=== PATIENT | female | born 1995 | race Hispanic/Latino ===

== ENCOUNTER 2017-02-24 15:51 | Emergency (ER) | payer OTHER ==
[~2017-02-24] VITALS: Ht 157.5 cm; Wt 118.2 kg
[~2017-02-24 15:51] MED LIST: DOCU-41 PO; IBUP800T28 PO; OXYC1TAB24 PO
[2017-02-24 15:55] VITALS: BP 144/99; PULSE 105; RESP 20; O2SAT 99
--- NOTE | 2017-02-24 17:40 | ED.REPORT ---
HPI-Allergic Reaction Date of Service February 24, 2017 ED Provider: Arsh Cox MD Patient is a 21 year old female with a history of a pituitary gland disorder who presents to the ED due to an allergic reaction onset 1400. Associated symptoms include throat swelling, hives and episodes of confusion. She denies eating any new foods or taking any new medications. The patient was seen earlier today at , where she was given IV medications and improved. Patient reports she has been seen previously for these episodes of confusion that have been going on for the past year. Nursing Notes Stated Complaint: ALLERGIC REACTION/FROM [facility] Chief Complaint: Allergic Reaction Nursing Notes Reviewed: Yes Allergies: Coded Allergies: No Known Allergies (Verified Allergy, Unknown, 04/24/16) Scheduled PRN Docusate Sodium (Colace) 100 Mg Capsule 100 MG PO BID PRN PRN For Constipation Ibuprofen (Ibuprofen) 800 Mg Tablet 800 MG PO Q6H PRN PRN For Pain oxyCODONE-Acetaminophen 5-325 mg (oxyCODONE-Acetaminophen 5-325 mg) 1 Each Tablet 1-2 TAB PO Q6H PRN PRN For Pain General Time Seen by MD: 17:28 Chief Complaint Allergic reaction Past Medical History Past Medical History Denies Past Surgical History Reports: Family History Noncontributory Smoking History Never Smoker Ambulatory Status Independent Physical Exam Initial Vital Signs Vital Signs (First) Date Time Temp Pulse Resp B/P Pulse Ox O2 Delivery O2 Flow Rate FiO2 02/24/17 15:55 36.7 105 20 144/99 99 Room Air Initial VS: Reviewed General/Constitutional: Awake, Alert, No acute distress Respiratory / Chest: Atraumatic, Breath sounds NL, Breath sounds = bilat, No respiratory distress Cardiovascular: Heart rate NL, Regular rhythm, Heart sounds NL, No murmurs Skin: Atraumatic, Color NL, No rash, Warm, Dry Head / Eyes: Atraumatic, Normocephalic, PERRL, EOMI ENT: Atraumatic, Airway patent, Mucous membranes moist, Pharynx NL no tongue or throat swelling Abdomen: Atraumatic, Soft, Non-tender Neurologic: Oriented X3, Speech NL, No motor deficits, No sensory deficits Upper Extremity / MS: Atraumatic, Full range of motion Lower Extremity / Pelvis / MS: Atraumatic, Full range of motion, No edema Psychiatric: Affect NL, Mood NL Re-Eval/Medical Decision Med Decision/Clinical Course 21-year-old female presenting several from urgent care after allergic reaction. She reports she had hives earlier today and reports throat swelling. They gave her steroids and urgent care and sent her over. They did not give her epinephrine. Her symptoms resolved prior to arrival. She was observed for greater than 2 hours with no resolution of symptoms. Unclear etiology for her allergic reaction. No signs of anaphylaxis. Her throat swelling and has completely resolved prior to arrival. Recommend Benadryl as needed and return precautions. Source of Hx: Old records Re-Evaluation/Progress #1: Time of Eval: 19:36 Re-Evaluation/Progress Note: Patient reports that she is feeling better now. Re-Evaluation/Progress #2: Time of Eval: 19:46 Re-Evaluation/Progress Note: Discussed plan for discharge. The patient understands and agrees to the plan for discharge. All questions were addressed. Counseled Regarding: Diagnosis, Lab results, Need for follow-up, When/why to return to ED Discharge & Departure Primary Impression: Allergic reaction Encounter type: initial encounter Qualified Code: T78.40XA - Allergy, unspecified, initial encounter Disposition: Home Discharge Condition All VS Reviewed: Yes Condition: Stable Patient Instructions: Allergies (ED), Food Allergy (ED) Additional Instructions: We are unsure what caused your allergic reaction. You can buy over the counter allergy medication to help with the symptoms. Please follow up with your primary care physician next week. Return to the emergency department if you develop any new or worsening symptoms including difficulty breathing, swallowing or hives. Referrals: Hayley Huerta DO (PCP) Brandon Attestation Portions of this note were transcribed by Ivy Serna. I, Dr. Carine Esquivel personally performed the history, physical exam and medical decision-making; I reviewed and confirmed the accuracy of the information in the transcribed note. Signed by: Brandon Muller, 02/24/17 and 1945 copies to: Hayley Huerta Ben M MD February 24, 2017 17:40 Eugenia Serna February 24, 2017 18:49
[2017-02-24 18:36] VITALS: BP 146/78; PULSE 110; RESP 18; O2SAT 99
[2017-02-24 19:52] VITALS: BP 141/89; PULSE 101; RESP 16; O2SAT 95
== END 2017-02-24 19:57 | disposition home or self-care (01) ==
LOC: SED 15:51
DX: T78.40XA Allergy, unspecified, initial encounter (principal); Y93.89 Activity, other specified; Y92.89 Other specified places as the place of occurrence of the external cause; Y99.8 Other external cause status; R41.0 Disorientation, unspecified
CPT/HCPCS: 99282; A4300; G0463; J1200; J2930

== ENCOUNTER 2017-02-25 15:09 | Emergency (ER) | payer OTHER ==
[~2017-02-25] VITALS: Ht 157.5 cm; Wt 118.2 kg
[2017-02-25 15:14] VITALS: BP_SYST 151; BP_SYST 167; BP_DIAS 108; BP_DIAS 88; PULSE 97; RESP 16; O2SAT 100
--- NOTE | 2017-02-25 15:42 | ED.REPORT ---
HPI-General Illness Date of Service February 25, 2017 ED Provider: Arsh Cox MD 21 year old female with a history of a Stable pituitary macroadenoma who presents to the ER due to intermittent confusion today. She states "I suddenly got tingling over my head and I'm having problem thinking". This has since resolved. Pt states that this hasn't happened in a long time. Other symptoms include abd cramping, back pain, hand tingling, leg aching and black discharge from vagina. LNMP 1.5 months ago. Pt denies any drug or alcohol use. Denies headache, changes in vision or speech, dysphagia, weakness, numbness. Tingling in hands. Pt is followed by neurology Dr. Rosas. Pt was supposed to have an MRI today which was cancelled due to insurance. Nursing Notes Stated Complaint: FEELING CONFUSED Chief Complaint: General Complaint Nursing Notes Reviewed: Yes Allergies: Coded Allergies: No Known Allergies (Verified Allergy, Unknown, 02/25/17) Scheduled PRN Docusate Sodium (Colace) 100 Mg Capsule 100 MG PO BID PRN PRN For Constipation Ibuprofen (Ibuprofen) 800 Mg Tablet 800 MG PO Q6H PRN PRN For Pain oxyCODONE-Acetaminophen 5-325 mg (oxyCODONE-Acetaminophen 5-325 mg) 1 Each Tablet 1-2 TAB PO Q6H PRN PRN For Pain General Time Seen by MD: 15:41 Chief Complaint Other (Confusion) Hx Obtained From: Patient, Other family... Arrived By: Walk-in Onset Occurred: Onset unknown (itzel) Symptom Duration: Intermittent Severity: Current: No pain currently Associated with: Denies: Fever, Loss of consciousness, Shortness of breath Pertinent Negative: Exacerbated by nothing, Relieved by nothing Similar Sx Previous: Yes Past Medical History Past Medical History PCOS Stable pituitary macroadenoma Past Surgical History Reports: Family History Noncontributory Smoking History Never Smoker Social History Other Social History: Good social support Ambulatory Status Independent Review of Systems Full Review of Systems Constitutional: Denies: Fever GI: Reports: Abdominal pain Musculoskeletal: Reports: Back pain Neurologic: Reports: Confusion, Denies: Change LOC, Numbness, Slurred speech, Vision change, Weakness Complete sys rev & neg: except as marked. Physical Exam Vital Signs Vital Signs Date Time Temp Pulse Resp B/P Pulse Ox O2 Delivery O2 Flow Rate FiO2 5/11/17 20:27 80 24 125/81 100 Room Air 02/25/17 15:14 36.3 97 16 151/88 100 Room Air Initial VS: Reviewed Extremities: Vascular intact, Neuro intact, No swelling, No tenderness Skin: Warm, Dry Psychiatric: Behavior normal, Normal thought content General/Constitutional: Awake, Alert Head / Eyes: Atraumatic, Normocephalic, PERRL Neck: Atraumatic, Full range of motion Respiratory / Chest: Breath sounds NL, Breath sounds = bilat, No respiratory distress, No rales, No rhonchi, No wheezing Cardiovascular: Heart rate NL, Regular rhythm, Heart sounds NL, No murmurs, Cap refill not delayed, Peripheral circulation NL Abdomen: Atraumatic, Soft, Non-tender Back: Full range of motion, No midline vertebral tend, No CVA tenderness R lower reproducable tenderness Female Genitourinary: Special Needs Caregiver present, No cervical motion tend, No adnexal tenderness No active bleeding, small amount of dark brown discharge Neurologic: Oriented X3, No motor deficits, CN II - XII intact Strength 5/5 in all extremities Speaking slowly, otherwise normal speech and neuro exam. Interpretation & Diagnostics Lab Results Interpretation Result Diagram: 02/25/17 1716 02/25/17 1716 Test 02/25/17 17:16 02/25/17 19:04 02/25/17 20:07 White Blood Count 17.8th/mm3 (3.8-10.1) Red Blood Count 4.90mil/mm3 (3.90-5.20) Hemoglobin 15.0g/dL (12.0-15.6) Hematocrit 45.5% (35.0-46.0) Mean Corpuscular Volume 92.9fL (81-100) Mean Corpuscular Hemoglobin 30.6pg (27.0-35.0) Mean Corpuscular Hemoglobin Concent 33.0% (32.0-37.0) Red Cell Distribution Width 13.2% (12.3-15.4) Platelet Count 265bil/L (150-400) Neutrophils (%) (Auto) 74.7% (40-74) Lymphocytes (%) (Auto) 18.2% (14-46) Monocytes (%) (Auto) 6.2% (4-12) Eosinophils (%) (Auto) 0.4% (0-5) Basophils (%) (Auto) 0.3% (0-3) Sodium Level 143mEq/L (134-144) Potassium Level 3.7mEq/L (3.5-5.2) Chloride Level 104mEq/L (97-108) Carbon Dioxide Level 23mmol/L (18-29) Blood Urea Nitrogen 19mg/dL (6-20) Creatinine 0.60mg/dL (0.57-1.00) Estimat Glomerular Filtration Rate 177mL/min (>59) Glucose Level 92mg/dL (60-99) Calcium Level 9.6mg/dL (8.5-10.1) Total Bilirubin 0.4mg/dL (0.0-1.2) Aspartate Amino Transf (AST/SGOT) 22U/L (0-50) Alanine Aminotransferase (ALT/SGPT) 24U/L (0-32) Alkaline Phosphatase 70U/L (25-150) Total Protein 7.9g/dL (6.4-8.4) Albumin 4.1g/dL (3.4-5.0) Thyroid Stimulating Hormone (TSH) 1.050uIU/mL (0.450-4.500) Hold Salvador Top Tube Received (Received) Urine Color Yellow (YELLOW) Urine Appearance Clear (CLEAR,HAZY) Urine pH 6.0 (5.0-8.0) Urine Specific Cisco 1.025 (1.003-1.035) Urine Protein Negativemg/dL (NEG,TRACE) Urine Glucose (UA) Negativemg/dL (NEGATIVE) Urine Ketones Negativemg/dL (NEGATIVE) Urine Occult Blood Moderate (NEGATIVE) Urine Nitrite Negative (NEGATIVE) Urine Bilirubin Negative (NEGATIVE) Urine Urobilinogen Normalmg/dL (NORMAL) Urine Leukocyte Esterase Negative (NEGATIVE) Urine RBC 0-2/hpf (0-2) Urine WBC 0-5/hpf (0-5) Urine Epithelial Cells Moderate/hpf (NONE-MOD) Urine Crystals None seen (NONE SEEN) Urine Bacteria Moderate/hpf (NONE-FEW) Urine Hyaline Casts None/lpf (NONE) Urine Granular Casts None seen (NONE SEEN) Urine Waxy Casts None seen (NONE SEEN) Urine Red Blood Cell Casts None seen (NONE SEEN) Urine White Blood Cell Casts None seen (NONE SEEN) Urine Mucus None seen (None Seen) Urine Trichomonas None seen (NONE SEEN) Urine Yeast None (NONE SEEN) Urinalysis Comment None Urine Culture Reflexed Indicated General Lab Results Interp 1: Labs reviewed CT Head Interpretation IMPRESSION: No acute intracranial abnormalities. Dictated by: Jg Hills M.D. on 02/25/2017 at 19:45 Study: Head CT no contrast Interpretation / Wet Read by: Interpret - Radiologist Re-Eval/Medical Decision Med Decision/Clinical Course 21-year-old female long history of episodes of confusion and pituitary microadenoma (stable on CT from 2012 to 2014) presenting with episode of confusion today. She is followed by Dr. Chahal for this. She has had negative workup thus far and I spoke with Dr. Rosas and he believes her episodes are due to migraines. Her neurological exam is normal today. Her only new complaint is headache. She also complains of dark pelvic discharge. Her CT head is normal. Her pelvic exam with dark brown discharge and she is due for her menstrual cycle. There is no cervical motion tenderness and no adnexal tenderness. Sent for wet mount and GC chlamydia. She felt better with Reglan and Toradol. Discussed with Dr. Rosas who had ordered MRI which was canceled for insurance reasons today. He recommended no MRI emergently and they will schedule and as an outpatient. Thought stable for discharge. Return precautions given. Time of Eval: 20:02 Re-Evaluation/Progress Note: Pt updated of results. Performed supplementary exam. Discussed plan for d/c and f/u. All questions addressed. Consultation : Referral / Consult Name: Zachary Rosas MD Consulted With: Neurology Call Returned at: 16:47 Note: Thinks she has migraines and does not think that she needs an urgent MRI today. Counseled Regarding: Diagnosis, Lab results, Need for follow-up, When/why to return to ED Discharge & Departure Primary Impression: Migraine headache Migraine type: unspecified Status migrainosus presence: without status migrainosus Intractability: not intractable Qualified Code: G43.909 - Migraine, unspecified, not intractable, without status migrainosus Additional Impression: Back pain Back pain location: low back pain Chronicity: acute Back pain laterality: bilateral Sciatica presence: without sciatica Qualified Code: M54.5 - Low back pain Disposition: Home Discharge Condition All VS Reviewed: Yes Condition: Improved Patient Instructions: Acute Headache (GEN) Additional Instructions: Follow up with Dr. Rosas. Call for an appointment tomorrow. Come back for worsening confusion, fevers, incontinence, weakness, numbness, tingling, nausea , vomiting, abdominal pain, back pain or any other concerning symptoms. Referrals: Hayley Huerta DO (PCP) Scribe Attestation Portions of this note were transcribed by Kristine Reid. I, (Dr. Arsh Esquivel) personally performed the history, physical exam and medical decision- making; I reviewed and confirmed the accuracy of the information in the transcribed note. Signed by: Kristine Reid. Brandon, 02/25/2017, 2002 copies to: Hayley Huerta Ben M MD February 25, 2017 15:42 Kristine Reid February 25, 2017 16:12
[2017-02-25] MEDS ORDERED: MetoCLOpramide 5 mg/mL 2 mL Inj IM ONE (16:50)
[2017-02-25 17:24] LABS: BASOPHILS % (AUTO) 0.3 % (0-3); EOSINOPHILS % (AUTO) 0.4 % (0-5); MONOCYTES % (AUTO) 6.2 % (4-12); Mean Corpuscular Hemoglobin 30.6 pg (27.0-35.0); Mean Corpuscular Volume 92.9 fL (81-100); NEUTROPHILS % (AUTO) 74.7 % (40-74); Platelet Count 265 bil/L (150-400)
[2017-02-25 19:41] LABS: APPEARANCE,URINE CLEAR (CLEAR,HAZY); COLOR,URINE YELLOW (YELLOW); OCCULT BLOOD,URINE MODERATE (NEGATIVE); UROBILINOGEN,URINE NORMAL (NORMAL)
--- NOTE | 2017-02-25 19:49 | DRSVH ---
PROCEDURE: CT BRAIN WITHOUT CONTRAST ([id number]) INDICATIONS: 21 year-old female with altered mental status. TECHNIQUE: Noncontrast 4.5 mm thick angled axial sections acquired from the foramen magnum to the vertex, with c oronal reformats. COMPARISON: None. FINDINGS: Image quality: Excellent. CSF spaces: Basal cisterns are patent. No extra-axial fluid collections. Ventricles are normal in size and shape. Brain: No midline shift. No intracranial masses or hemorrhage. Lane-white matter interface is norm al. Skull and face: Calvarium and visualized facial bones are intact, without suspicious lesions. Sinuses: There is right maxillary sinus mucosal thickening. Other visualized sinuses and mastoids ar e clear. IMPRESSION: No acute intracranial abnormalities. Dictated by: Jg Hills M.D. on 02/25/2017 at 19:45 Approved by: Jg Hills M.D. on 02/25/2017 at 19:47
[2017-02-25 20:27] VITALS: BP 125/81; PULSE 80; RESP 24; O2SAT 100
== END 2017-02-25 20:29 | disposition home or self-care (01) ==
LOC: SED 15:09
DX: G43.909 Migraine, unspecified, not intractable, without status migrainosus (principal); M54.5 Low back pain; D35.2 Benign neoplasm of pituitary gland; E28.2 Polycystic ovarian syndrome
CPT/HCPCS: 36415; 70450; 80053; 81000; 81025; 84443; 85025; 87086; 87210; 87491; 87591; 96372; 99284; J1885; J2765